=== PATIENT | female | born 1980 | race American Indian/Alaskan Native ===

== ENCOUNTER → 2017-12-23 14:41 | Outpatient (CLI) | payer MEDICAID, SELFPAY ==
--- NOTE | 2017-12-23 | DI.MG.S_ITS ---
BILATERAL DIGITAL DIAGNOSTIC MAMMOGRAM 3D/2D: 12/23/2017 CLINICAL: Baseline exam. Left Breast mass. No prior exams were available for comparison. There are scattered fibroglandular elements in both breasts. There are clustered heterogeneous punctate calcifications in the left breast at 12 o'clock middle depth. No other significant masses, calcifications, or other findings are seen in either breast. IMPRESSION: INCOMPLETE: NEEDS ADDITIONAL IMAGING EVALUATION The clustered heterogeneous punctate calcifications in the left breast are at a low suspicion for malignancy. A stereotactic biopsy is recommended. There is no abnormality seen in the left breast to correspond with the palpable abnormality in the upper inner quadrant, however, ultrasound is recommended. This exam was interpreted at Station ID: [id number]. NOTE: For mammograms, a report in lay terms will be sent to the patient. Approximately 15% of breast malignancies will not be visualized mammographically. In the management of a palpable breast mass, a negative mammogram must not discourage biopsy of a clinically suspicious lesion. Electronically Signed By: Jefferson doan/jose e:12/23/2017 16:09:33 letter sent: Need Ultrasound ACR BI-RADS Category 0: Incomplete [id number]
--- NOTE | 2017-12-23 | DI.US.S_ITS ---
ULTRASOUND OF LEFT BREAST: 12/23/2017 CLINICAL: Palpable left breast lump and focal pain. Comparison is made to exam dated: 12/23/[address] [facility]. Real-time ultrasound of the left breast was performed on the area of interest. No discrete cystic or solid mass identified in the area of palpable abnormality. IMPRESSION: SUSPICIOUS OF MALIGNANCY - FOLLOW-UP RECOMMENDED There is no abnormality seen in the left breast to correspond with the palpable abnormality at 9 o'clock, however, clinical followup is recommended. A stereotactic guided biopsy is recommended of the left breast calcifications. The findings were discussed with the patient at the conclusion of the study by Dr. Pabon. This exam was interpreted at Station ID: [id number]. Electronically Signed By: Jefferson doan/:12/24/2017 07:33:53 Entry: - 12/24/2017 07:33:53 letter sent: Biopsy Required Ultrasound BI-RADS: 4a Suspicious abnormality - low suspicion for malignancy
== END ==
PROVIDERS: Visit Provider Family Medicine
DX: R92.8 Other abnormal and inconclusive findings on diagnostic imaging of breast (principal); N63.20 Unspecified lump in the left breast, unspecified quadrant
CPT/HCPCS: 76642; 77066; G0279

== ENCOUNTER → 2018-07-07 09:20 | Outpatient (CLI) | payer MEDICAID, SELFPAY ==
--- NOTE | 2018-07-07 | DI.RAD.S_ITS ---
PROCEDURE: XR SHOULDER RT MIN 2V INDICATIONS: POINT TENDERNESS RT AC JOINT SUBACROMIAL BURSITIS TECHNIQUE: 3 views of the shoulder were acquired. COMPARISON: None. FINDINGS: Bones: No fractures or dislocations. No suspicious bony lesions. Visualized ribs appear intact. Soft tissues: No suspicious soft tissue calcifications. IMPRESSION: No acute radiographic findings. If there is continued pain, followup exam or additional imaging such as MRI or CT could be performed for further assessment. Dictated by: Faye Villanueva M.D. on 07/07/2018 at 9:47 Approved by: Faye Villanueva M.D. on 07/07/2018 at 9:47
== END ==
PROVIDERS: Visit Provider Family Medicine
DX: M75.51 Bursitis of right shoulder (principal)
CPT/HCPCS: 73030

== ENCOUNTER 2023-04-02 00:52 | Emergency (ER) | payer MEDICAID, SELFPAY ==
[2023-04-02 01:01] VITALS: BP 146/85; PULSE 68; RESP 18; TEMP 36.6; O2SAT 98; BMI 34.0
--- NOTE | 2023-04-02 01:12 | DI.RAD.S_ITS ---
PROCEDURE: XR KUB INDICATIONS: no BM 2 wks TECHNIQUE: One view of the abdomen acquired. COMPARISON: None. FINDINGS: Surgical changes and devices: None. Bowel: Overall bowel gas pattern is not specific for obstruction. Moderate fecal loading. Soft tissues: No suspicious calcifications. Bones: Minimal hip degenerative changes. IMPRESSION: No acute radiographic abnormality. If there is high concern for acute abdomen, consider CT. Dictated by: Bhargav Roque M.D. on 04/02/2023 at 1:39 Approved by: Bhargav Roque M.D. on 04/02/2023 at 1:40
--- NOTE | 2023-04-02 01:29 | DI.RAD.S_ITS ---
PROCEDURE: XR CHEST 1V INDICATIONS: chest heaviness (r sided) TECHNIQUE: One view of the chest was acquired. COMPARISON: [facility], CR, XR CHEST 1 VIEW, 11/15/2017, 15:34. [facility], CR, XR CHEST 1 VIEW, 03/20/2023, 18:14. FINDINGS: Surgical changes and devices: None. Lungs and pleura: No dense consolidation or pleural effusion. Mediastinum: Heart size is at the upper limit of normal. Bones and chest wall: Unremarkable IMPRESSION: No acute radiographic abnormality on this single view study Dictated by: Bhargav Roque M.D. on 04/02/2023 at 1:38 Approved by: Bhargav Roque M.D. on 04/02/2023 at 1:39
--- NOTE | 2023-04-02 01:39 | ED_ITS ---
HPI - Extremity Problem General Chief complaint: Extremity Problem,Nontraumatic Stated complaint: no bowel movement in 2 weeks, rt side pain Time Seen by Provider: 04/02/23 01:01 Source: patient Mode of arrival: Ambulatory History of Present Illness HPI Narrative: 42-year-old female with history of oua-dloabee-obojtmnga diabetes presents for right-sided tingling and 2 weeks of constipation with no bowel movement. Patient states that she has had tingling in the right hand and arm for ?years?. She reported to nursing staff that she was worried about her heart because sometimes her right side chest feels ?heavy? She states that when she lived in [place] she had an MRI of ?everything?, but no cause of her symptoms was found. She is in talks with her primary care physician about being referred to a neurologist. Denies numbness or weakness. Patient states she is tried numerous ystd-gxs-oxecekt laxatives without relief of her constipation. Related Data Allergies Allergy/AdvReac Type Severity Reaction Status Date / Time acetaminophen [From Vicodin] Allergy Verified 04/02/23 01:40 hydrocodone [From Vicodin] Allergy Verified 04/02/23 01:40 Review of Systems Review of Systems Narrative: Negative except as noted above Patient History Social History Smoking Status: Former smoker Smoking Status: Former smoker alcohol intake frequency: holidays/special occasions only Substance Use Type: marijuana Exam Initial Vital Signs Initial Vital Signs: Vital Signs Temperature 98 F 04/02/23 01:01 Pulse Rate 68 04/02/23 01:01 Respiratory Rate 18 04/02/23 01:01 Blood Pressure 146/85 H 04/02/23 01:01 Pulse Oximetry 98 04/02/23 01:01 Oxygen Delivery Method Room Air 04/02/23 01:01 Const: Awake, alert, no acute distress, nontoxic appearing Eyes: PERRL, EOMI, conjunctiva normal ENT: Atraumatic, dentition normal, mucous membranes moist Cardiac: regular rate, regular rhythm RESP: unlabored, clear bilaterally, no wheezing GI: Atraumatic, soft, nontender, nondistended, no rebound, no guarding MSK: Atraumatic, full range of motion, pulses equal Skin: Warm, Dry, intact, no rashes Neuro: AO x3, CN II-XII grossly intact, moves all extremities Psych: affect normal, mood normal, not suicidal, not homicidal Course Course Course Narrative: Longstanding tingling in the right side of her body into weeks of constipation. Patient has intact sensation in her upper and lower extremities, intact strength. Patient already followed by PCP for symptoms. CT negative for obstruction. Given numerous laxatives and DC with golytely solution. Counseled to include daily miralax titrated to goal of one soft bowel movement daily. Orders Ordered: ED Orders 04/02/23 01:12 XR KUB Stat EKG-12 Lead Stat 04/02/23 01:29 Chest [XR chest 1V] Stat 04/02/23 01:52 CBC Auto Diff [Complete Blood Count AUTO DIFF] Stat CMP [Comprehensive Metabolic Panel] Stat Troponin & CK Cardiac Panel Stat 04/02/23 02:19 CT abdomen pelvis w con Stat Discontinued Medications Polyethylene Glycol/Electrolytes ([id number]/Sod Sulf,Bicarb,Cl/Kcl 4,000 Ml Solution) 4,000 ml PO NOW ONE Stop: 04/02/23 01:31 Last Admin: 04/02/23 02:07 Dose: 4,000 ml Documented By: HARMONY Sennosides (Sennosides 8.6 Mg Tablet) 17.2 mg PO NOW ONE Stop: 04/02/23 01:31 Last Admin: 04/02/23 01:43 Dose: 17.2 mg Documented By: HARMONY Vital Signs Vital signs: Vital Signs - 8 hr 04/02/23 01:01 04/02/23 03:28 Temperature 98 F 97.8 F Pulse Rate 68 80 Respiratory Rate 18 20 Blood Pressure 146/85 H 172/80 H Pulse Oximetry 98 96 Oxygen Delivery Method Room Air Room Air MDM - Extremity (Nontraumatic) Lab Data 04/02/23 01:52 04/02/23 01:52 Labs: Lab Results 04/02/23 Range/Units 01:52 WBC 13.2 H (4.5-11.0) X10^3/uL RBC 4.28 (4.0-5.2) X10^6/uL Hgb 13.0 (12.0-16.0) g/dL Hct 38.2 (36-46) % MCV 89.4 (80-100) fL MCH 30.5 (26-34) PG MCHC 34.1 (30-36) % RDW 12.7 (11.6-14.8) % Plt Count 350 (150-400) X10^3/uL Neut % (Auto) 66.0 (50-75) % Lymph % (Auto) 25.7 (25-40) % [place] % (Auto) 5.5 (3-14) % Eos % (Auto) 1.7 L (2-4) % Baso % (Auto) 1.1 (0-2) % Neut # (Auto) 8700 H (5306-9335) /uL Lymph # (Auto) 3400 (7304-0074) /uL [place] # (Auto) 700 (0-900) /uL Eos # (Auto) 200 (0-450) /uL Baso # (Auto) 100 (0-100) /uL Sodium 134 L (137-145) mmol/L Potassium 4.2 (3.4-5.1) mmol/L Chloride 101 (98-107) mmol/L Carbon Dioxide 25 (22-32) mmol/L BUN 20 H (7-17) mg/dL Creatinine 0.82 (0.52-1.04) mg/dL Estimated GFR > 60 (>60) mL/min BUN/Creatinine Ratio 24.4 H (6-22) Glucose 100 (70-100) mg/dL Calcium 9.4 (8.4-10.2) mg/dL Total Bilirubin 0.6 (0.2-1.3) mg/dL AST 21 (14-36) IU/L ALT 20 (<35) IU/L Alkaline Phosphatase 96 (38-126) U/L Total Creatine Kinase 43 (30-135) U/L Troponin I < 0.012 (0.01-0.034) ng/mL Total Protein 7.9 (6.3-8.2) g/dL Albumin 4.3 (3.5-5.0) g/dL Globulin 3.6 (1.7-4.1) g/dL Albumin/Globulin Ratio 1.2 (1.0-2.8) Discharge Plan Departure Patient Disposition: Home Clinical Impression: Constipation, Tingling Instructions: DI for Constipation Activity Restrictions/Additional Instructions: Take your gabapentin as previously prescribed. Talk to your doctor about the possibility of referral to Neurology. Take MiraLax daily as much as it takes to achieve 1 soft bowel movement daily. Stand Alone Forms: Patient Portal/API
[2023-04-02] MEDS: SENNOSIDES 8.6 MG TABLET 17.2 MG PO (01:43)
[2023-04-02] MEDS: PEG3350/SOD SULF,BICARB,CL/KCL 4,000 ML SOLUTION 4000 ML PO (02:07)
[2023-04-02 02:11] LABS: Alanine Aminotransferase 20 IU/L (<35); Albumin 4.3 g/dL (3.5-5.0); Albumin Globulin Ratio 1.2 (1.0-2.8); Alkaline Phosphatase 96 U/L (38-126); Aspartate Aminotransferase 21 IU/L (14-36); BUN Creatinine Ratio 24.4 (6-22); Bilirubin Total 0.6 mg/dL (0.2-1.3); Blood Urea Nitrogen 20 mg/dL (7-17); Calcium 9.4 mg/dL (8.4-10.2); Carbon Dioxide 25 mmol/L (22-32); Chloride 101 mmol/L (98-107); Creatine Kinase 43 U/L (30-135); Estimated Glomerular Filt Rate > 60 mL/min (>60); Globulin 3.6 g/dL (1.7-4.1); Glucose 100 mg/dL (70-100); HEMOLYSIS < 15 (0-50); Potassium 4.2 mmol/L (3.4-5.1); Sodium 134 mmol/L (137-145); Total Protein 7.9 g/dL (6.3-8.2)
[2023-04-02 02:16] LABS: Add Manual Diff / Slide Review NO; Basophils Absolute Auto 100 /uL (0-100); Basophils Percent Auto 1.1 % (0-2); Eosinophils Absolute Auto 200 /uL (0-450); Eosinophils Percent Auto 1.7 % (2-4); Hematocrit 38.2 % (36-46); Lymphocytes Absolute Auto 3400 /uL (1100-4500); Lymphocytes Percent Auto 25.7 % (25-40); Mean Corpuscular HGB Conc 34.1 % (30-36); Mean Corpuscular Hemoglobin 30.5 PG (26-34); Mean Corpuscular Volume 89.4 fL (80-100); Monocytes Absolute Auto 700 /uL (0-900); Monocytes Percent Auto 5.5 % (3-14); Neutrophils Absolute Auto 8700 /uL (1500-7000); Platelet Count 350 X10^3/uL (150-400); Red Blood Cell Count 4.28 X10^6/uL (4.0-5.2); Red Cell Distribution Width 12.7 % (11.6-14.8); White Blood Cell Count 13.2 X10^3/uL (4.5-11.0)
--- NOTE | 2023-04-02 02:19 | DI.CT.S_ITS ---
PROCEDURE: CT ABDOMEN PELVIS W CON INDICATIONS: no bm 2 wks, abdominal pain TECHNIQUE: After the administration of intravenous contrast, axial sections acquired from the lung bases to the pubic symphysis. Coronal and sagittal reformats were performed. For radiation dose reduction, the following was used: automated exposure control, adjustment of mA and/or kV according to patient size. COMPARISON: [facility], CT, CT CHEST ABDOMEN PELVIS WITH CONTRAST, 11/15/2017, 15:44. FINDINGS: Image quality: Excellent. Lung bases: Unremarkable. Heart: No significant findings. ABDOMEN: Liver: There is a 9 mm peripheral hepatic hypodensity in the anterior aspect of the right hepatic lobe (28/series 2). This is stable since 2018 CT and is compatible with a benign process given its stability over time. Gallbladder: Unremarkable. Biliary ducts: Unremarkable. Pancreas: Unremarkable. Spleen: The spleen is normal in size and appearance. Adrenal Glands: Unremarkable. Kidneys and Ureters: Kidneys are symmetric in size and enhancement, and there is no obstructive uropathy. No perinephric inflammatory changes. Ureters are normal in course and caliber. Stomach and Bowel: Stomach, small bowel loops, and colon are unremarkable. There is large volume of stool seen throughout the entire colon. Peritoneum: No abnormal intraperitoneal fluid. No free air. Ventral Wall: No hernias. Abdominal Nodes: No retroperitoneal or mesenteric adenopathy by size criteria. Vessels: Aorta and inferior vena cava are normal in size. PELVIS: Pelvic Organs: Unremarkable. Bladder: Unremarkable. Pelvic Nodes: No enlarged lymph nodes. Miscellaneous: No hernias are seen. Bones: Visualized osseous structures appear intact without acute fracture or focal destructive lesion. No acute compression fractures of the imaged spine. IMPRESSION: 1. Large volume stool seen throughout the colon. No evidence for acute abnormalities. Findings may be related to constipation. 2. Stable 9 mm hepatic hypodensity since [address] Its stability over time is compatible with a benign process. No significant discrepancy with the third shift lieutenant radiology preliminary report. Dictated by: Fran Wasserman M.D. on 04/02/2023 at 9:20 Approved by: Fran Wasserman M.D. on 04/02/2023 at 9:25
[2023-04-02 02:22] LABS: Troponin I < 0.012 ng/mL (0.01-0.034)
[2023-04-02 03:28] VITALS: BP 172/80; PULSE 80; RESP 20; TEMP 36.6; O2SAT 96
== END 2023-04-02 03:31 | disposition home or self-care (01) ==
PROVIDERS: Emergency Provider Emergency Medicine
DX: K59.00 Constipation, unspecified (principal); R20.2 Paresthesia of skin; Z87.891 Personal history of nicotine dependence
CPT/HCPCS: 71045; 74018; 74177; 80053; 82550; 84484; 85025; 99283; Q9967